=== PATIENT | female | born 1975 | race American Indian/Alaskan Native ===

== ENCOUNTER 2016-12-08 07:38 | Day surgery (SDC) | payer MEDICAID ==
[2016-12-08] MEDS ORDERED: NACL 0.9% 1000 ML 1,000 ML IV SCH (09:00)
--- NOTE | 2016-12-08 09:12 | Anesthesia Consultation ---
Anesthesia Consult and Med Hx Date of service: 12/08/16 - Airway Anesthetic Teeth Evaluation: Poor (multiple missing ) ROM Head & Neck: Adequate Mental/Hyoid Distance: Adequate Mallampati Class: Class III Intubation Access Assessment: Possibly Difficult - Pulmonary Exam CTA: Yes - Cardiac Exam Cardiac Exam: RRR - Pre-Operative Health Status ASA Pre-Surgery Classification: ASA3 Proposed Anesthetic Plan: MAC - Pulmonary Hx Smoking: Yes - Central Nervous System Hx Back Pain: Yes - Other Systems Hx Obesity: Yes
--- NOTE | 2016-12-08 09:12 | Anesthesia Day of Surgery ---
Anesthesia Day of Surgery - Day of Surgery Patient Examined: Yes Patient H&P Reviewed: Yes Patient is NPO: Yes
[2016-12-08] MEDS ORDERED: DIPRIVAN 10 MG/ML IV ONE (09:13)
[2016-12-08 10:26] VITALS: BP 130/80
--- NOTE | 2016-12-08 10:54 | Post Anesthesia Evaluation ---
- Post Anesthesia Evaluation Patient Participated: Yes Airway Patent: Yes Stable Respiratory Function: Yes Nausea/Vomiting: No Temp > 96.8F: Yes Pain Manageable: Yes Adequeate Hydration: Yes Anesthesia Complications: No Block Receding Appropriately: Not Applicable Patient on Ventilator: No
--- NOTE | 2016-12-10 10:13 | Discharge Summary ---
Providers - Providers Date of Admission: 12/08/2015 Date of discharge: 12/08/16 Attending physician: ANCELMO TURCIOS Primary care physician: SUNSHINE PERALTA Hospitalization Reason for admission: Pre-Op EGD Condition: Good Procedures: Esophagogastroduodenoscopy Disposition: DISCHARGED TO HOME OR SELFCARE - Discharge Diagnoses (1) Hiatal hernia with GERD Status: Chronic Core Measure Documentation - Palliative Care Palliative Care/ Comfort Measures: Not Applicable (Not applicable) Exam - Physical Exam Narrative exam: Physical exam as dictated in H&P - Constitutional Vitals: Temp Pulse Resp BP Pulse Ox 98.2 F 81 16 130/80 99 12/08/16 09:59 12/08/16 10:25 12/08/16 10:25 12/08/16 10:25 12/08/16 10:25 Plan Follow up with: SUNSHINE PERALTA MD [Primary Care Provider] - 7 Days Pending Studies None
== END 2016-12-08 07:39 | disposition home or self-care (01) ==
LOC: GIO 07:38
PROVIDERS: ATTEND Specialist
DX: K21.0 Gastro-esophageal reflux disease with esophagitis (principal); K44.9 Diaphragmatic hernia without obstruction or gangrene; I10 Essential (primary) hypertension; E66.01 Morbid (severe) obesity due to excess calories; Z68.42 Body mass index [BMI] 45.0-49.9, adult
CPT/HCPCS: 43235; 81025; J2704; J7030

== ENCOUNTER 2018-03-30 09:53 | Emergency (ER) | payer MEDICAID ==
[2018-03-30 11:08] VITALS: BP 130/96
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
== END 2018-03-30 13:44 | disposition home or self-care (01) ==
LOC: ED 09:53
DX: N64.4 Mastodynia (principal); Z90.89 Acquired absence of other organs; Z87.891 Personal history of nicotine dependence; Z88.1 Allergy status to other antibiotic agents
CPT/HCPCS: 99282

== ENCOUNTER 2018-08-12 18:25 | Emergency (ER) | payer MEDICAID ==
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
[2018-08-12 20:15] LABS: BUN/Creatinine Ratio 11; Blood Urea Nitrogen 8 mg/dL (7-17); Calcium 8.9 mg/dL (8.4-10.2); Hemolysis Index 6
[2018-08-12 21:11] LABS: Basophils % (Auto) 0.2 % (0.0-1.8); Eosinophils # (Auto) 0.1 K/mm3 (0.0-0.4); Eosinophils % (Auto) 1.1 % (0.0-4.3); Hematocrit 32.1 % (30.3-42.9); Hemoglobin 10.1 gm/dl (10.1-14.3); Lymphocytes # (Auto) 2.1 K/mm3 (1.2-5.4); Lymphocytes % (Auto) 29.1 % (13.4-35.0); Mean Corpuscular HGB Conc 32 % (30-34); Monocytes # (Auto) 0.5 K/mm3 (0.0-0.8); Monocytes % (Auto) 6.5 % (0.0-7.3); Platelet Count 294 K/mm3 (140-440); Red Blood Count 4.79 M/mm3 (3.65-5.03)
[2018-08-12 21:12] LABS: Mean Corpuscular Hemoglobin 21 pg (28-32); Mean Corpuscular Volume 67 fl (79-97)
[2018-08-13 11:16] LABS: Bacteria,Urine 1+ /HPF (Negative); Bilirubin,Urine NEG (Negative); Blood,Urine NEG (Negative); Color,Urine Yellow (Yellow); Mucus,Urine FEW /HPF; Protein,Urine <15 mg/dL mg/dL (Negative); Urobilinogen,Urine < 2.0 mg/dL (<2.0)
[2018-08-13 11:20] LABS: Amphetamine Screen,Urine PRESUMPTIVE NEGATIVE; Benzodiazepines Screen,Urine PRESUMPTIVE NEGATIVE; Cannabinoid Screen,Urine PRESUMPTIVE NEGATIVE; Cocaine Screen,Urine PRESUMPTIVE NEGATIVE; Methadone Screen,Urine PRESUMPTIVE NEGATIVE; Opiate Screen,Urine PRESUMPTIVE NEGATIVE
[2018-08-13 14:37] VITALS: BP 122/79
== END 2018-08-13 14:43 ==
LOC: ED 18:25
DX: T43.202A Poisoning by unspecified antidepressants, intentional self-harm, initial encounter (principal); F32.9 Major depressive disorder, single episode, unspecified; X58.XXXA Exposure to other specified factors, initial encounter; Z90.89 Acquired absence of other organs; Z88.1 Allergy status to other antibiotic agents; Z88.8 Allergy status to other drugs, medicaments and biological substances; Z79.899 Other long term (current) drug therapy
CPT/HCPCS: 36415; 80048; 80307; 81001; 84703; 85025; 93005; 93010; 99285; G0480; 80320